=== PATIENT | female | born 1945 | race African-American/Black ===

== ENCOUNTER 2016-08-10 11:39 | Emergency (ER) | payer MEDICARE ==
[~2016-08-10] VITALS: Ht 172.7 cm; Wt 75.0 kg
[2016-08-10] MEDS ORDERED: ACETAMINOPHEN 500MG TABLET PO ONE (13:15)
[2016-08-10 13:28] VITALS: BP 98/53
== END 2016-08-10 15:19 | disposition home or self-care (01) ==
LOC: ER 12:00
DX: M25.531 Pain in right wrist (principal); S93.401A Sprain of unspecified ligament of right ankle, initial encounter; W01.0XXA Fall on same level from slipping, tripping and stumbling without subsequent striking against object, initial encounter; Y93.89 Activity, other specified; Y92.89 Other specified places as the place of occurrence of the external cause
CPT/HCPCS: 29125; 73130; 99284

== ENCOUNTER 2016-12-30 00:49 | Inpatient (IN) | payer MEDICARE ==
[~2016-12-30] VITALS: Ht 170.2 cm; Wt 77.1 kg
[2016-12-30] MEDS ORDERED: MORPHINE SULFATE 2 MG/ML CPJ (NOT FOR IM USE) IV ONE (01:30)
[2016-12-30] MEDS ORDERED: SODIUM CHLORIDE 0.9% 1000ML BAG (SEPSIS BOLUS) IV ONE (01:30)
[2016-12-30 01:54] LABS: BASOPHILS % 1.2 % (0.0-2.0); EOSINOPHILS % 3.3 % (0.0-5.0); HEMATOCRIT. 31.4 % (36.0-48.0); HEMOGLOBIN. 10.5 g/dL (12.0-16.0); LYMPHOCYTES % 20.6 % (20.0-50.0); MEAN CORPUSCULAR HEMOGLOBIN 29.9 pg (28.0-32.0); MEAN CORPUSCULAR VOLUME 89.7 fL (81.0-99.0); MEAN PLATELET VOLUME 9.2 fl (7.4-10.4); MONOCYTES % 5.5 % (2.0-8.0); NEUTROPHILS % 69.4 % (40.0-76.0); PLATELET 211 x1000/uL (130-400); RED CELL DISTRIBUTION WIDTH 15.7 % (11.6-14.6)
[2016-12-30 02:11] LABS: CARBON DIOXIDE 26 mEq/L (21-32); CHLORIDE 106 mEq/L (98-107); TROPONIN I < 0.02 ng/mL (0.00-0.04)
[2016-12-30 02:33] LABS: D-DIMER 1.58 mg/L FEU (<0.50); INR 1.1; PARTIAL THROMBOPLASTIN TIME 27.8 sec (23.4-31.0); PROTHROMBIN TIME 11.3 sec (9.4-11.6)
[2016-12-30 04:48] LABS: CLARITY URINE CLEAR (CLEAR); COLOR URINE YELLOW (YELLOW); GLUCOSE URINE NEGATIVE (NEGATIVE); KETONES URINE NEGATIVE (NEGATIVE); LEUKOCYTE ESTERASE URINE 2+ (NEGATIVE); NITRITE URINE NEGATIVE (NEGATIVE); OCCULT BLOOD URINE NEGATIVE (NEGATIVE); PH URINE 6.5 (4.5-8.0); PROTEIN URINE NEGATIVE (NEGATIVE); SPECIFIC GRAVITY URINE 1.031 (1.005-1.030)
[2016-12-30] MEDS ORDERED: IOHEXOL-350 100 ML BOTTLE ONE (06:00)
[2016-12-30] MEDS ORDERED: SODIUM CHLORIDE 0.9% 10ML VIAL ONE (06:00)
[2016-12-30 08:15] VITALS: BP 95/65
[2016-12-30 08:20] VITALS: BP 95/65
[2016-12-30] MEDS ORDERED: ONDANSETRON HCL 4MG/2ML VIAL IV PRN (08:30)
[2016-12-30 09:25] LABS: T4 FREE 1.07 ng/dL (0.76-1.46)
[2016-12-30] MEDS ORDERED: SPIR25TA4 PO (10:13)
[2016-12-30] MEDS ORDERED: SENN-22 PO (10:13)
[2016-12-30] MEDS ORDERED: MULT-1146 PO (10:13)
[2016-12-30] MEDS ORDERED: BRIM15DR8 OP (10:13)
[2016-12-30] MEDS ORDERED: LINA5TAB PO (10:13)
[2016-12-30] MEDS ORDERED: LEVO75TA7 PO (10:13)
[2016-12-30] MEDS ORDERED: SIMV20TA6 PO (10:13)
[2016-12-30] MEDS ORDERED: GABA-529 PO (10:13)
[2016-12-30] MEDS ORDERED: ASPI-1159 PO (10:13)
[2016-12-30] MEDS ORDERED: FURO20TA4 PO (10:13)
[2016-12-30] MEDS ORDERED: DIGO125T82 PO (10:13)
[2016-12-30] MEDS ORDERED: LATA2.5D2 EACHEYE (10:13)
[2016-12-30] MEDS: ASPIRIN 81MG EC TABLET PO SCH (11:16)
[2016-12-30] MEDS: ENOXAPARIN 40MG/0.4ML SYR SUBCUT SCH (11:16)
[2016-12-30 12:00] VITALS: BP 103/70
[2016-12-30] MEDS ORDERED: CLONIDINE 0.1MG TABLET PO PRN (12:15)
[2016-12-30] MEDS ORDERED: GUAIFENESIN 200MG/10ML SUGAR FREE UDC PO PRN (12:15)
[2016-12-30] MEDS ORDERED: ACETAMINOPHEN 325MG TABLET PO PRN (12:15)
[2016-12-30] MEDS ORDERED: MAGNESIUM/ALUMINUM HYDROXIDE/SIMETHICONE 30ML UDC PO PRN (12:15)
[2016-12-30] MEDS ORDERED: SENNOSIDES 8.6MG TABLET PO PRN (12:15)
[2016-12-30] MEDS ORDERED: DEXTROSE 50% WATER 50ML SYRINGE IV PRN (12:15)
[2016-12-30] MEDS ORDERED: DIPHENHYDRAMINE 50MG/ML VIAL IV PRN (12:15)
[2016-12-30] MEDS ORDERED: IPRATROPIUM/ALBUTEROL 0.5-3(2.5)MG/3ML NEB INH PRN (12:15)
[2016-12-30] MEDS: INSULIN LISPRO 100 UNITS/ML SUBCUT SCH ×3 (13:00→21:00)
[2016-12-30] MEDS: BLOOD SUGAR DIAGNOSTIC STRIP TEST SCH ×3 (13:00→21:17)
[2016-12-30] MEDS: BRIMONIDINE 0.2% OPHTH DROPS 5ML BOTHEYE SCH ×2 (14:45→21:15)
[2016-12-30] MEDS: SODIUM CHLORIDE 0.9% INJ 3ML FLUSH IVF SCH ×2 (14:45→21:17)
[2016-12-30 15:44] LABS: CREATINE KINASE MB FRACTION 27.1 ng/mL (0.5-3.6)
[2016-12-30 15:55] VITALS: BP 86/47
[2016-12-30 15:55] LABS: TROPONIN I 4.5 ng/mL (0.00-0.04)
[2016-12-30] MEDS ORDERED: ENOXAPARIN 80MG/0.8ML SYR SUBCUT NR (17:00)
[2016-12-30] MEDS: GABAPENTIN 100MG CAPSULE PO SCH (18:06)
[2016-12-30] MEDS: LINAGLIPTIN 5MG TABLET PO SCH (18:07)
[2016-12-30] MEDS: DIGOXIN 125MCG TABLET PO SCH (18:07)
[2016-12-30 20:02] VITALS: BP 91/63
[2016-12-30] MEDS: LATANOPROST 0.005% OPHTH DROPS 2.5ML EACHEYE SCH ×2 (21:00→21:19)
[2016-12-30 22:40] VITALS: BP 81/51
[2016-12-31] VITALS (16 sets, daily range): BP systolic 88–110; BP diastolic 33–77
[2016-12-31] MEDS: BLOOD SUGAR DIAGNOSTIC STRIP TEST SCH ×4 (05:53→20:55)
[2016-12-31] MEDS: SODIUM CHLORIDE 0.9% INJ 3ML FLUSH IVF SCH ×3 (05:53→21:29)
[2016-12-31] MEDS: LEVOTHYROXINE SODIUM 75MCG TABLET PO SCH (05:53)
[2016-12-31 06:57] LABS: BASOPHILS % 1.1 % (0.0-2.0); EOSINOPHILS % 2.9 % (0.0-5.0); HEMATOCRIT. 33.1 % (36.0-48.0); HEMOGLOBIN. 11.1 g/dL (12.0-16.0); LYMPHOCYTES % 25.7 % (20.0-50.0); MEAN CORPUSCULAR HEMOGLOBIN 30.4 pg (28.0-32.0); MEAN CORPUSCULAR VOLUME 90.1 fL (81.0-99.0); MEAN PLATELET VOLUME 9.2 fl (7.4-10.4); MONOCYTES % 5.7 % (2.0-8.0); NEUTROPHILS % 64.6 % (40.0-76.0); PLATELET 196 x1000/uL (130-400); RED BLOOD CELL COUNT 3.67 mill/uL (4.2-5.4); RED CELL DISTRIBUTION WIDTH 15.7 % (11.6-14.6)
[2016-12-31] MEDS: INSULIN LISPRO 100 UNITS/ML SUBCUT SCH ×4 (07:07→20:55)
[2016-12-31 07:34] LABS: CARBON DIOXIDE 21 mEq/L (21-32); CHLORIDE 111 mEq/L (98-107)
[2016-12-31 07:53] LABS: CREATINE KINASE 309 IU/L (26-192); HDL CHOLESTEROL 44 mg/dL (40-59); LDL CHOLESTEROL 47 mg/dL (5-100)
[2016-12-31] MEDS: ENOXAPARIN 40MG/0.4ML SYR SUBCUT SCH (08:17)
[2016-12-31] MEDS: GABAPENTIN 100MG CAPSULE PO SCH ×2 (08:28→16:30)
[2016-12-31] MEDS: SPIRONOLACTONE 25MG TABLET PO SCH (08:29)
[2016-12-31] MEDS: ASPIRIN 81MG EC TABLET PO SCH (08:29)
[2016-12-31] MEDS: BRIMONIDINE 0.2% OPHTH DROPS 5ML BOTHEYE SCH ×2 (08:30→21:20)
[2016-12-31] MEDS ORDERED: LIDOCAINE HCL 1% 20ML VIAL (Pyxis) INJ ONE (11:41)
[2016-12-31] MEDS ORDERED: MIDAZOLAM HCL 2 MG/2 ML VIAL ONE (11:55)
[2016-12-31] MEDS ORDERED: FENTANYL CITRATE/PF 50MCG/ML 2ML VIAL ONE (11:56)
[2016-12-31] MEDS ORDERED: IOHEXOL-300 100 ML BOTTLE ONE (11:57)
[2016-12-31] MEDS ORDERED: ATROPINE SULFATE 1MG/10ML SYR IV PRN (12:45)
[2016-12-31] MEDS ORDERED: ACETAMINOPHEN 325MG TABLET PO PRN (12:45)
[2016-12-31] MEDS: CLOPIDOGREL 75MG TABLET PO SCH (13:39)
[2016-12-31] MEDS: LINAGLIPTIN 5MG TABLET PO SCH (18:27)
[2016-12-31] MEDS: DIGOXIN 125MCG TABLET PO SCH (18:27)
[2016-12-31] MEDS: LATANOPROST 0.005% OPHTH DROPS 2.5ML EACHEYE SCH (21:20)
[2017-01-01] VITALS (10 sets, daily range): BP systolic 80–102; BP diastolic 52–73
[2017-01-01] MEDS: SODIUM CHLORIDE 0.9% INJ 3ML FLUSH IVF SCH ×2 (06:04→16:22)
[2017-01-01] MEDS: LEVOTHYROXINE SODIUM 75MCG TABLET PO SCH (06:04)
[2017-01-01] MEDS: BLOOD SUGAR DIAGNOSTIC STRIP TEST SCH ×2 (06:06→12:11)
[2017-01-01] MEDS: INSULIN LISPRO 100 UNITS/ML SUBCUT SCH ×2 (06:37→12:11)
[2017-01-01 07:57] LABS: BASOPHILS % 1.3 % (0.0-2.0); EOSINOPHILS % 1.7 % (0.0-5.0); HEMATOCRIT. 34.5 % (36.0-48.0); HEMOGLOBIN. 11.6 g/dL (12.0-16.0); LYMPHOCYTES % 24.5 % (20.0-50.0); MEAN CORPUSCULAR HEMOGLOBIN 30.2 pg (28.0-32.0); MEAN CORPUSCULAR VOLUME 89.6 fL (81.0-99.0); MEAN PLATELET VOLUME 9.4 fl (7.4-10.4); MONOCYTES % 5.2 % (2.0-8.0); NEUTROPHILS % 67.3 % (40.0-76.0); PLATELET 208 x1000/uL (130-400); RED BLOOD CELL COUNT 3.85 mill/uL (4.2-5.4); RED CELL DISTRIBUTION WIDTH 15.7 % (11.6-14.6)
[2017-01-01] MEDS: ENOXAPARIN 40MG/0.4ML SYR SUBCUT SCH (08:26)
[2017-01-01] MEDS: CLOPIDOGREL 75MG TABLET PO SCH (08:36)
[2017-01-01] MEDS: ASPIRIN 81MG EC TABLET PO SCH (08:36)
[2017-01-01] MEDS: SPIRONOLACTONE 25MG TABLET PO SCH (08:37)
[2017-01-01] MEDS: GABAPENTIN 100MG CAPSULE PO SCH (08:37)
[2017-01-01] MEDS: BRIMONIDINE 0.2% OPHTH DROPS 5ML BOTHEYE SCH (08:51)
[2017-01-01] MEDS ORDERED: ASPIRIN 81MG EC TABLET PO SCH (09:00)
[2017-01-01 11:02] LABS: CREATINE KINASE MB FRACTION 4.3 ng/mL (0.5-3.6)
[2017-01-01 12:57] LABS: TROPONIN I 5.7 ng/mL (0.00-0.04)
== END 2017-01-01 16:45 | disposition home or self-care (01) | DRG 280 ==
LOC: ER 00:49 → OBSVTOIN 03:29 → INTOOBSV 03:29 → 8WST 03:29 → EDBEDREQ 03:32 → ENRESERV 07:10 → 3WST 20:15
PROVIDERS: ADMIT Internal Medicine; ATTEND Internal Medicine
PROC: 4A023N7 Measurement of Cardiac Sampling and Pressure, Left Heart, Percutaneous Approach (ICD-10-PCS; principal; 2016-12-31)
PROC: B2111ZZ Fluoroscopy of Multiple Coronary Arteries using Low Osmolar Contrast (ICD-10-PCS; 2016-12-31)
PROC: B2151ZZ Fluoroscopy of Left Heart using Low Osmolar Contrast (ICD-10-PCS; 2016-12-31)
PROC: B41F1ZZ Fluoroscopy of Right Lower Extremity Arteries using Low Osmolar Contrast (ICD-10-PCS; 2016-12-31)
DX: I21.4 Non-ST elevation (NSTEMI) myocardial infarction (principal); I50.23 Acute on chronic systolic (congestive) heart failure; I95.89 Other hypotension; I42.9 Cardiomyopathy, unspecified; C50.912 Malignant neoplasm of unspecified site of left female breast; I45.4 Nonspecific intraventricular block; E03.9 Hypothyroidism, unspecified; I44.0 Atrioventricular block, first degree; E11.9 Type 2 diabetes mellitus without complications; E78.00 Pure hypercholesterolemia, unspecified; I25.10 Atherosclerotic heart disease of native coronary artery without angina pectoris; N28.9 Disorder of kidney and ureter, unspecified; R79.1 Abnormal coagulation profile; Z82.49 Family history of ischemic heart disease and other diseases of the circulatory system; Z90.49 Acquired absence of other specified parts of digestive tract; Z95.0 Presence of cardiac pacemaker; Z85.3 Personal history of malignant neoplasm of breast; Z79.82 Long term (current) use of aspirin; Z80.9 Family history of malignant neoplasm, unspecified; Z95.810 Presence of automatic (implantable) cardiac defibrillator
CPT/HCPCS: 36415; 71010; 71275; 80048; 80053; 80061; 81001; 82550; 82553; 82962; 83605; 83735; 83880; 84439; 84443; 84484; 85025; 85379; 85610; 85730; 87040; 87086; 93005; 93306; 93458; 93970; 96361; 96374; 99285; A4216; C1760; C1769; C1887; C1893; J1644; J1650; J2250; J2270; J3010; J3490; J7030; Q9967